=== PATIENT | female | born 1960 | race Caucasian/White ===

== ENCOUNTER 2019-09-24 08:46 | Emergency (ER) | payer OTHER ==
[~2019-09-24] VITALS: Ht 165.1 cm; Wt 90.7 kg
[~2019-09-24 08:46] MED LIST: FLEXERIL PO; LEVOTHYROXIN0.175 MG PO; METFORMIN HCL500 MG PO; NAPROSYN500 MG PO; ZOLOFT100 MG PO; ZYRTEC10 M5
[2019-09-24 08:57] VITALS: BP 153/79
[2019-09-24] MEDS ORDERED: [UNRECOGNIZED DRUG - OTHER] (09:01)
[2019-09-24] MEDS ORDERED: NEURONTIN300 MG PO (09:01)
[2019-09-24] MEDS ORDERED: ALLOPURINOL 10100 M1 PO (09:01)
== END 2019-09-24 09:17 | disposition left against medical advice (07) ==
LOC: M.ERS 08:46
DX: R42 Dizziness and giddiness (principal); R10.9 Unspecified abdominal pain; G47.30 Sleep apnea, unspecified; E11.9 Type 2 diabetes mellitus without complications; E03.9 Hypothyroidism, unspecified; F17.210 Nicotine dependence, cigarettes, uncomplicated; Z88.0 Allergy status to penicillin; Z90.710 Acquired absence of both cervix and uterus